=== PATIENT | male | born 1960 | race Caucasian/White ===

== ENCOUNTER 2019-06-22 10:00 | Outpatient (RCR) | payer MEDICARE, SELFPAY | END 2019-07-05 16:05 | disposition home or self-care (01) | LOC: PT.CARL 10:00 | PROVIDERS: Visit Provider Physician Assistant | DX: G20 Parkinson's disease (principal) | CPT/HCPCS: 97110; 97140; 97163 ==

== ENCOUNTER 2023-01-08 14:00 | Outpatient (RCR) | payer MEDICARE, SELFPAY | END 2023-01-08 15:00 | disposition home or self-care (01) | LOC: PT 14:00 | PROVIDERS: Visit Provider Anesthesiology | DX: M51.37 Other intervertebral disc degeneration, lumbosacral region (principal) | CPT/HCPCS: 97110; 97112; 97140; 97163; 97164; 97530 ==